=== PATIENT | female | born 1955 | race Asian ===

== ENCOUNTER 2017-08-09 09:59 | Emergency (ER) | payer OTHER ==
--- NOTE | 2017-08-09 10:46 | RADIOLOGY REPORT (SQ) ---
EXAM DESCRIPTION: ANKLE LEFT COMPLETE; FOOT LEFT COMPLETE COMPLETED DATE/TIME: 08/09/2017 10:36 am REASON FOR STUDY: injury COMPARISON: None. NUMBER OF VIEWS: Six views. TECHNIQUE: AP, lateral, and oblique radiographic images acquired of the left foot and left ankle. LIMITATIONS: None. FINDINGS: MINERALIZATION: Normal. BONES: Well corticated fragment distal to the medial malleolus consistent with remote trauma. Nondis placed fracture of the distal margin of the fibula. JOINTS: Mortise is symmetric. SOFT TISSUES: Swelling over the lateral malleolus. No foreign body. OTHER: No other significant finding. IMPRESSION: Nondisplaced fracture distal fibula. TECHNICAL DOCUMENTATION: JOB ID: [id number] [employer]- All Rights Reserved Reading location - IP/workstation name: JA
--- NOTE | 2017-08-09 10:46 | RADIOLOGY REPORT (SQ) ---
EXAM DESCRIPTION: ANKLE LEFT COMPLETE; FOOT LEFT COMPLETE COMPLETED DATE/TIME: 08/09/2017 10:36 am REASON FOR STUDY: injury COMPARISON: None. NUMBER OF VIEWS: Six views. TECHNIQUE: AP, lateral, and oblique radiographic images acquired of the left foot and left ankle. LIMITATIONS: None. FINDINGS: MINERALIZATION: Normal. BONES: Well corticated fragment distal to the medial malleolus consistent with remote trauma. Nondis placed fracture of the distal margin of the fibula. JOINTS: Mortise is symmetric. SOFT TISSUES: Swelling over the lateral malleolus. No foreign body. OTHER: No other significant finding. IMPRESSION: Nondisplaced fracture distal fibula. TECHNICAL DOCUMENTATION: JOB ID: [id number] [employer]- All Rights Reserved Reading location - IP/workstation name: JA
[2017-08-09] MEDS ORDERED: IBUPROFEN 600 MG TABLET PO ONE (10:52)
[2017-08-09] MEDS ORDERED: DIPH/PERTUSS(ACELL)/TETANUS VAC/PF 0.5 ML SYR (>=10YO) IM ONE (10:53)
--- NOTE | 2017-08-09 10:55 | ER Document Report ---
HPI - HPI Patient complains to provider of: ankle injury Onset: Yesterday Onset/Duration: Sudden Quality of pain: Achy Pain Level: 3 Context: Patient states she was walking yesterday and missed a curb and accidentally twisted her left ankle. Patient states she fell and has abrasions to her right elbow and right knee. Patient denies any head injury or loss of consciousness. Associated Symptoms: Other - Ankle pain Exacerbated by: Standing, Movement, Walking Relieved by: Denies Similar symptoms previously: No Recently seen / treated by doctor: No - ROS ROS below otherwise negative: Yes Systems Reviewed and Negative: Yes All other systems reviewed and negative - CONSTITUTIONAL Constitutional: DENIES: Fever - NEURO Neurology: DENIES: Headache - GASTROINTESTINAL Gastrointestinal: DENIES: Nausea, Patient vomiting - MUSCULOSKELETAL Musculoskeletal: REPORTS: Extremity pain, Swelling - DERM Skin Color: Ecchymosis Skin Problems: Abrasion Past Medical History - General Information source: Patient - Social History Smoking Status: Never Smoker Frequency of alcohol use: None Drug Abuse: None Occupation: [employer] Family History: Reviewed & Not Pertinent - Medical History Medical History: Negative Past Surgical History: Reports: Other - Cataract Vertical Provider Document - CONSTITUTIONAL Agree With Documented VS: Yes Exam Limitations: No Limitations General Appearance: WD/WN, No Apparent Distress - INFECTION CONTROL TRAVEL OUTSIDE OF THE [place] IN LAST 30 DAYS: No - HEENT HEENT: Atraumatic, Normocephalic - NECK Neck: Normal Inspection - RESPIRATORY Respiratory: Breath Sounds Normal, No Respiratory Distress O2 Sat by Pulse Oximetry: 99 - CARDIOVASCULAR Cardiovascular: Regular Rate, Regular Rhythm Pulses: Normal: Dorsalis pedis - MUSCULOSKELETAL/EXTREMETIES Musculoskeletal/Extremeties: MAEW, FROM, Tender - Left ankle tenderness over lateral malleolar area with overlying ecchymosis, Edema, Eccymosis Notes: Right knee with overlying abrasion - NEURO Level of Consciousness: Awake, Alert, Appropriate Motor/Sensory: No Motor Deficit - DERM Integumentary: Warm, Dry Notes: Abrasion to right knee Course - Vital Signs Vital signs: Temp Pulse Resp BP Pulse Ox 98.1 F 80 20 120/69 99 08/09/17 10:03 08/09/17 10:03 08/09/17 10:03 08/09/17 10:03 08/09/17 10:03 - Diagnostic Test Radiology reviewed: Image reviewed, Reports reviewed Procedures - Immobilization Left Ankle Pre-Proc Neuro Vasc Exam: Normal Immobilizer type: Posterior ankle Performed by: PCT Post-Proc Neuro Vasc Exam: Normal Alignment checked and good: Yes Discharge - Discharge Clinical Impression: Closed fracture of left distal fibula Qualifiers: Encounter type: initial encounter Fracture morphology: unspecified fracture morphology Qualified Code(s): S82.832A - Other fracture of upper and lower end of left fibula, initial encounter for closed fracture Knee abrasion Qualifiers: Encounter type: initial encounter Laterality: right Qualified Code(s): S80.211A - Abrasion, right knee, initial encounter Condition: Stable Disposition: HOME, SELF-CARE Instructions: Abrasions ([facility]), Use of Crutches ([facility]), Fracture of Distal Fibula ([facility]), Ice & Elevation ([facility]), Oral Narcotic Medication ([facility]), Splint Precautions ([facility]), Tetanus Immunization Given ([facility]) Additional Instructions: Return immediately for any new or worsening symptoms Followup with your primary care provider, call tomorrow to make a followup appointment Follow-up with orthopedic doctor for further evaluation, call today for follow- up appointment Prescriptions: Hydrocodone/Acetaminophen [[place] 5-325 Tablet] 1 each PO Q6 PRN #15 tablet PRN Reason: Forms: Return to Work Referrals: [facility] FOR [facility]ERY ([facility]) [Provider Group] - Follow up tomorrow
[2017-08-09 11:49] VITALS: BP 126/74
== END 2017-08-09 12:10 | disposition home or self-care (01) ==
LOC: ER 09:59
DX: S82.832A Other fracture of upper and lower end of left fibula, initial encounter for closed fracture (principal); S50.311A Abrasion of right elbow, initial encounter; S80.211A Abrasion, right knee, initial encounter; W10.1XXA Fall (on)(from) sidewalk curb, initial encounter; Y93.01 Activity, walking, marching and hiking
CPT/HCPCS: 90471; 90715; 99283

== ENCOUNTER 2018-04-12 06:33 | Day surgery (SDC) | payer OTHER ==
[2018-04-03 09:29] LABS: HEMATOCRIT 42.6 % (36.0-47.0); HEMOGLOBIN 13.8 g/dL (12.0-15.5); MEAN CORPUSCULAR HEMOGLOBIN 24.2 pg (27.0-33.4); MEAN CORPUSCULAR HGB CONC 32.4 g/dL (32.0-36.0); MEAN CORPUSCULAR VOLUME 75 fl (80-97); PLATELET COUNT 429 10^3/uL (150-450); RED CELL DISTRIBUTION WIDTH 17.1 % (11.5-14.0); WHITE BLOOD COUNT 4.8 10^3/uL (4.0-10.5)
[2018-04-03 09:55] LABS: ANION GAP 11 (5-19); BLOOD UREA NITROGEN 19 mg/dL (7-20); CALCIUM 9.7 mg/dL (8.4-10.2); CARBON DIOXIDE 27 mmol/L (22-30); CHLORIDE 104 mmol/L (98-107); GLUCOSE 116 mg/dL (75-110); POTASSIUM 4.2 mmol/L (3.6-5.0); SODIUM 141.8 mmol/L (137-145)
--- NOTE | 2018-04-04 08:36 | EKG REPORT ---
SEVERITY:- BORDERLINE ECG - SINUS RHYTHM PROBABLE LEFT ATRIAL ABNORMALITY : Confirmed by: Colleen Agustin 04-Apr-2018 08:35:32
[~2018-04-12 06:33] MED LIST: CEFAZOLIN 2 GM/D5W RTU 2 GM/50 ML RTUPB IV PRN; LACTATED RINGERS 1000 ML IV PRN
[2018-04-12] MEDS ORDERED: CEFAZOLIN 2 GM/D5W RTU 2 GM/50 ML RTUPB IV ONE (07:14)
[2018-04-12] MEDS ORDERED: LIDOCAINE 2%/EPINEPHRINE INJ 1.7 ML CARTRIDGE ONE ×3 (07:50→13:43)
[2018-04-12] MEDS ORDERED: FENTANYL CITRATE INJ/PF 250 MCG/5 ML AMPULE ONE (08:02)
[2018-04-12] MEDS ORDERED: MIDAZOLAM 2 MG/2 ML INJ ONE (08:02)
[2018-04-12] MEDS ORDERED: ACETAMINOPHEN 1,000 MG/100 ML RTUPB IV ONE (08:03)
[2018-04-12] MEDS ORDERED: PROPOFOL INJ 200 MG/20 ML VIAL IV ONE (08:03)
[2018-04-12] MEDS ORDERED: EPHEDRINE SULFATE INJ 50 MG/1 ML AMPULE ONE (08:03)
[2018-04-12 08:04] LABS: ALBUMIN 4.5 g/dL (3.5-5.0); CALCIUM 9.6 mg/dL (8.4-10.2); PHOSPHORUS 4.6 mg/dL (2.5-4.5)
[2018-04-12] MEDS ORDERED: GLYCOPYRROLATE 1 MG/5 ML SYRINGE ONE (08:59)
[2018-04-12] MEDS ORDERED: LIDOCAINE 2% INJ-PF (20 MG/ML) 2 ML AMPUL ONE (08:59)
[2018-04-12] MEDS ORDERED: ONDANSETRON HCL INJ/PF 4 MG/2 ML SDV ONE (08:59)
[2018-04-12] MEDS ORDERED: NEOSTIGMINE METHYLSULFATE 10 MG/10 ML VIAL ONE (08:59)
[2018-04-12] MEDS ORDERED: DEXAMETHASONE SOD PHOSPHATE INJ 4 MG/1 ML VIAL ONE (08:59)
[2018-04-12] MEDS ORDERED: PROMETHAZINE HCL INJ 25 MG/1 ML VIAL IV PRN ×3 (09:58→14:15)
[2018-04-12] MEDS ORDERED: OXYCODONE-ACETAMINOPHEN 5-325 MG TABLET PO PRN ×2 (09:58)
[2018-04-12] MEDS ORDERED: FENTANYL CITRATE INJ/PF 100 MCG/2 ML AMPUL IV PRN ×3 (09:58)
[2018-04-12] MEDS ORDERED: MEPERIDINE HCL/PF INJ 25 MG/1 ML DISP.SYRIN IV PRN (09:58)
[2018-04-12] MEDS ORDERED: DIPHENHYDRAMINE HCL 50 MG/ML VIAL IV PRN (09:58)
[2018-04-12] MEDS ORDERED: ONDANSETRON HCL INJ/PF 4 MG/2 ML SDV IV PRN ×3 (12:34→18:36)
[2018-04-12] MEDS ORDERED: HYDROCODONE/ACETAMINOPHEN 5-325 MG TABLET PO PRN ×2 (14:00→18:36)
[2018-04-12] MEDS ORDERED: MORPHINE SULFATE 10 MG/ML INJ IV PRN (14:15)
[2018-04-12 17:05] LABS: ALBUMIN 4.2 g/dL (3.5-5.0); CALCIUM 9.2 mg/dL (8.4-10.2); PHOSPHORUS 3.8 mg/dL (2.5-4.5)
[2018-04-12] MEDS: MELATONIN 5 MG TABLET PO SCH (21:55)
[2018-04-12] MEDS ORDERED: (PENDING PHARMACY ID) (Melatonin [Melatonin] 5 MG) PO SCH (22:00)
[2018-04-12] MEDS: HYDROCODONE/ACETAMINOPHEN 5-325 MG TABLET PO PRN (23:29)
[2018-04-13] MEDS: RINGERS SOLUTION,LACTATED 1,000 ML IV PRN ×2 (02:23→10:33)
[2018-04-13] MEDS ORDERED: MULTIVITAMIN TABLET PO SCH (10:00)
[2018-04-13] MEDS ORDERED: (PENDING PHARMACY ID) (Multivitamin [Multivitamins] 1 TAB) PO SCH (10:00)
[2018-04-13] MEDS: HYDROCODONE/ACETAMINOPHEN 5-325 MG TABLET PO PRN (10:30)
[2018-04-13] MEDS ORDERED: LORATADINE 10 MG TABLET PO SCH (16:00)
[2018-04-13 16:35] LABS: CALCIUM 8.9 mg/dL (8.4-10.2); PHOSPHORUS 3.8 mg/dL (2.5-4.5)
[2018-04-13 21:16] VITALS: BP 138/65
[2018-04-13] MEDS: MELATONIN 5 MG TABLET PO SCH (21:16)
--- NOTE | 2018-04-21 12:06 | OPERATIVE REPORT E ---
Operative Report NAME: KARSON VELOZ : 1955 AGE: 62Y DATE OF SURGERY: 04/12/2018 ROOM: 406 PREOPERATIVE DIAGNOSIS: Multinodular goiter. POSTOPERATIVE DIAGNOSIS: Multinodular goiter. OPERATION PERFORMED: 1. Total thyroidectomy. 2. Intraoperative noninvasive nerve monitoring. SURGEON: KANG AVILA D.O. ASSISTING SURGEON: Eduardo Pahm M.D. ANESTHETIC: General endotracheal tube. ANESTHESIA STAFF: CLARITA Jhaveri ESTIMATED BLOOD LOSS: 25 mL. FLUIDS: 1300 mL. URINE OUTPUT: 200 mL. COMPLICATIONS: None. DRAINS: None. SPONGE COUNT: Verified. NEEDLE COUNT: Verified. MATERIALS FORWARDED SPECIMEN: Total thyroid gland specimen. FINDINGS: 1. Total thyroid gland was noted to be enlarged with a left dominant nodule and smaller right thyroid nodule. 2. The parathyroid gland processes were identified and preserved during the case. 3. Bilateral recurrent laryngeal nerves were identified and preserved and stimulated appropriately at 1 milliamp during the case. 4. There were 2 pretracheal lymph nodes that were noted and removed for permanent pathology evaluation. INDICATIONS: This is a 62-year-old female patient who was seen and evaluated in the [facility] office. The patient had been referred by Endocrinology for a prominent and enlarging multinodular goiter with enlarging left dominant nodule greater than 3 cm in size and right thyroid nodules. The patient had undergone fine-needle aspiration biopsy with benign results. After extensive discussion with the patient with respect to the thyroid nodules enlarging, the dominant nodule over 3 cm in size, and right side nodules, plan was made to proceed with a total thyroidectomy as the patient also only wanted to undergo thyroid surgery once with a singular anesthetic. The procedure and all of its risks and complications were all discussed in detail with the patient. She voiced an understanding of the described surgical plan, agreed to proceed, and consent was obtained. PROCEDURE: The patient was taken to the main operating room and was placed on the operating room table in the supine position. Appropriate monitors were placed. Using mask and IV access, general anesthesia was induced. The patient was next transorally intubated with a NIM endotracheal monitoring tube. The patient was then prepped and positioned for thyroid surgery. There was a planned surgical incision that was marked at the anterior neck followed by infiltration with local anesthetic with epinephrine. The NIM monitoring system was set up and tested appropriately prior to beginning the case. The patient was then prepped and draped in the usual fashion for thyroid surgery. The skin was sharply incised down through the level of the subcutaneous and platysmal layers. The skin flaps were elevated in a subplatysmal plane. The strap muscles were identified and divided in the midline to expose the thyroid gland. The left thyroid lobe was mobilized after the strap muscles were retracted laterally. The superior and inferior thyroid vasculature was identified and divided with the harmonic handpiece and bipolar electrocautery. The left thyroid lobe was rolled medially and parathyroid gland prospects were identified and preserved as was the left recurrent laryngeal nerve which stimulated appropriately at 1 mAmp. The gland was released from the area of Longoria's ligament and brought onto the anterior tracheal aspect. Attention was now turned to the right thyroid lobe which was mobilized as the left had been. Prominent vasculature was addressed as before. Parathyroid gland prospects were identified and preserved as was the right recurrent laryngeal nerve which stimulated appropriately at 1 mAmp. The gland was then released from Longoria's ligament and the anterior tracheal wall and was passed off as permanent pathology specimen. Two pretracheal lymph nodes were identified and removed for permanent pathology evaluation as well. The wound beds were thoroughly irrigated with normal saline and suctioned. Bipolar electrocautery was used to provide additional and adequate hemostasis. One piece of Surgicel was placed per side overlying the recurrent laryngeal nerve areas, and each piece was approximately 2 x 2 cm in size. At this point the strap muscles were reapproximated in the midline with Vicryl suture. The platysmal layer was reapproximated with Vicryl suture. Next, the deep dermal/subcutaneous layers were reapproximated with 5-0 Monocryl. Next, 5-0 Monocryl suture was used to perform a continuous deep dermal suture to reapproximate the skin margins. The skin was next cleaned and dried followed by placement of Mastisol and Steri-Strips. The patient was then returned to the anesthesia staff and was allowed to emerge from general anesthesia. The patient was extubated in the main operating room and was then transported to the postanesthesia recovery unit in stable condition. There were no complications. DICTATING PHYSICIAN: KANG AVILA D.O. [id number] PHY#: [id number] ID: [id number] JOB#: [id number] ACCT: [id number] cc:KANG AVILA D.O. > MASOOD
== END 2018-04-13 21:48 | disposition home or self-care (01) ==
LOC: OROUT 06:33 → 4N 13:11 → OROUT 04-13 21:48
PROVIDERS: ATTEND Otolaryngology
DX: E04.2 Nontoxic multinodular goiter (principal); D34 Benign neoplasm of thyroid gland; E06.3 Autoimmune thyroiditis; D64.9 Anemia, unspecified
CPT/HCPCS: 93005; 36415 ×2; 82040; 82310; 83735; 84100; 85027; 80048; 83970; 88307 ×2; 93010; 60240; G0378 ×2; J2250; J3490 ×4; J1100; J3010; J2405; J7120 ×2; J2704; J0690; J0131; 320

== ENCOUNTER → 2020-05-26 | Outpatient (CLI) | payer OTHER ==
[2020-05-26 08:58] LABS: ABSOLUTE BASOPHILS # (AUTO) 0.1 10^3/uL (0.0-0.2); ABSOLUTE EOSINOPHILS # (AUTO) 0.2 10^3/uL (0.0-0.6); ABSOLUTE LYMPHOCYTES (AUTO) 1.4 10^3/uL (0.5-4.7); ABSOLUTE MONOCYTES (AUTO) 0.4 10^3/uL (0.1-1.4); ABSOLUTE NEUT (AUTO) 3.1 10^3/uL (1.7-8.2); BASOPHILS % (AUTO) 2.4 % (0-2); EOSINOPHILS % (AUTO) 3.1 % (0-6); HEMATOCRIT 39.4 % (36.0-47.0); HEMOGLOBIN 12.7 g/dL (12.0-15.5); LYMPHOCYTES % (AUTO) 26.5 % (13-45); MEAN CORPUSCULAR HEMOGLOBIN 24.2 pg (27.0-33.4); MEAN CORPUSCULAR HGB CONC 32.3 g/dL (32.0-36.0); MEAN CORPUSCULAR VOLUME 75 fl (80-97); PLATELET COUNT 444 10^3/uL (150-450); RED BLOOD COUNT 5.27 10^6/uL (3.72-5.28); RED CELL DISTRIBUTION WIDTH 17.3 % (11.5-14.0); TOTAL CELLS COUNTED % (AUTO) 100 %; WHITE BLOOD COUNT 5.2 10^3/uL (4.0-10.5)
[2020-05-26 09:22] LABS: BLOOD UREA NITROGEN 19 mg/dL (7-20); CALCIUM 9.2 mg/dL (8.4-10.2); GLUCOSE 123 mg/dL (75-110)
[2020-05-26 09:23] LABS: ALBUMIN 4.5 g/dL (3.5-5.0); ALKALINE PHOSPHATASE 76 U/L (38-126); ANION GAP 10 (5-19); ASPARTATE AMINO TRANSFERASE 34 U/L (14-36); BILIRUBIN,DIRECT 0.2 mg/dL (0.0-0.4); BILIRUBIN,TOTAL 0.7 mg/dL (0.2-1.3); CARBON DIOXIDE 24 mmol/L (22-30); CHLORIDE 105 mmol/L (98-107); IRON(TIBC) 54.3 ug/dL (37-170); POTASSIUM 4.6 mmol/L (3.6-5.0); TOTAL PROTEIN 7.8 g/dL (6.3-8.2); TRIGLYCERIDES 191 mg/dL (<150)
[2020-05-26 09:34] LABS: DIRECT LDL 128 mg/dL (<100)
[2020-05-26 09:40] LABS: FREE T3 3.63 pg/mL (2.77-5.27); FREE T4 (FREE THYROXINE) 1.26 ng/dL (0.78-2.19)
[2020-05-26 09:53] LABS: THYROID STIMULATING HORMONE 1.44 uIU/mL (0.47-4.68)
[2020-05-26 10:01] LABS: VLDL CHOLESTEROL 38.2 mg/dL (10-31)
== END ==
LOC: OD 08:01
PROVIDERS: ATTEND Family Medicine
DX: E78.5 Hyperlipidemia, unspecified (principal); E61.1 Iron deficiency; R73.9 Hyperglycemia, unspecified; E89.0 Postprocedural hypothyroidism
CPT/HCPCS: 36415; 80053; 80061; 82728; 83036; 83540; 83550; 84439; 84443; 84481; 85025